=== PATIENT | female | born 2000 | race Caucasian/White ===

== ENCOUNTER 2022-07-13 16:32 | Emergency (ER) | payer MEDICAID ==
[~2022-07-13] VITALS: Ht 152.4 cm; Wt 80.0 kg
[2022-07-13 16:35] VITALS: BP 120/83
== END 2022-07-13 17:55 | disposition home or self-care (01) ==
LOC: ER 16:32
DX: S06.0XAA Concussion with loss of consciousness status unknown, initial encounter (principal); W01.10XA Fall on same level from slipping, tripping and stumbling with subsequent striking against unspecified object, initial encounter; Y93.9 Activity, unspecified; Y92.89 Other specified places as the place of occurrence of the external cause
CPT/HCPCS: 99281